=== PATIENT | female | born 1950 ===

== ENCOUNTER 2017-02-10 11:05 | Outpatient (CLI) | payer OTHER ==
[2017-02-10 13:42] LABS: Basophils % (Auto) 0.5 % (0.0-1.8); Hematocrit 32.6 % (30.3-42.9); Hemoglobin 10.7 gm/dl (10.1-14.3); Mean Corpuscular HGB Conc 33 % (30-34); Mean Corpuscular Hemoglobin 29 pg (28-32); Mean Corpuscular Volume 89 fl (79-97); Platelet Count 277 K/mm3 (140-440); Red Blood Count 3.65 M/mm3 (3.65-5.03); Red Cell Distribution Width 14.2 % (13.2-15.2); White Blood Count 5.7 K/mm3 (4.5-11.0)
[2017-02-10 13:58] LABS: Albumin 3.3 g/dL (3.9-5); Albumin/Globulin Ratio 0.8 %; Alkaline Phosphatase 64 units/L (35-129); Anion Gap 17 mmol/L; BUN/Creatinine Ratio 11.66; Bilirubin,Total 0.3 mg/dL (0.1-1.2); Blood Urea Nitrogen 7 mg/dL (7-17); Calcium 9.1 mg/dL (8.4-10.2); Carbon Dioxide 24 mmol/L (22-30); Chloride 102.2 mmol/L (98-107); Glucose 119 mg/dL (65-100); Potassium 3.8 mmol/L (3.6-5.0); Sodium 139 mmol/L (137-145); Total Protein 7.7 g/dL (6.3-8.2)
[2017-02-10 14:06] LABS: Alanine Aminotransferase < 5 units/L (7-56)
== END 2017-02-10 11:06 | disposition home or self-care (01) ==
LOC: LABHHL 11:05
DX: Z45.2 Encounter for adjustment and management of vascular access device (principal); E11.42 Type 2 diabetes mellitus with diabetic polyneuropathy; E66.9 Obesity, unspecified; L44.0 Pityriasis rubra pilaris
CPT/HCPCS: 36415; 80053; 85025; 86140